=== PATIENT | male | born 1990 | race Caucasian/White ===

== ENCOUNTER 2017-12-26 00:54 | Emergency (ER) | payer BC ==
[2017-12-26 01:07] VITALS: O2SAT 100; BMI 25.1
[2017-12-26] MEDS ORDERED: Albuterol-Ipratrop 3 mg / 0.5 (3 ml) UD IH STA (01:19)
--- NOTE | 2017-12-26 01:22 | ED PDOC ---
Arrival/HPI - General Chief Complaint: Shortness Of Breath Time Seen by Provider: 12/26/17 01:07 Historian: Patient - History of Present Illness Narrative History of Present Illness (Text): 12/26/17 01:20 27 year old male, with no significant past medical history, presents to the emergency department with shortness of breath. Patient states he was sleeping at a friend's house when he became short of breath. Patient denies any associated chest pain, stating that he feels he can't take a deep breath. Patient denies any fever, chills, headache, dizziness, chest pain, cough, abdominal pain, nausea, vomiting, diarrhea, back pain, neck pain, urinary/bowel changes, or any other complaint. Time/Duration: Prior to Arrival Symptom Onset: Gradual Symptom Course: Unchanged Past Medical History - Provider Review Nursing Documentation Reviewed: Yes - Infectious Disease Hx of Infectious Diseases: None - Psychiatric Hx Substance Use: No - Anesthesia Hx Anesthesia: No Family/Social History - Physician Review Nursing Documentation Reviewed: Yes Family/Social History: No Known Family HX Smoking Status: Never Smoked Hx Alcohol Use: No Hx Substance Use: No Allergies/Home Meds Allergies/Adverse Reactions: Allergies No Known Allergies Allergy (Verified 12/26/17 01:12) Home Medications: Home Meds Medication Instructions Recorded Confirmed No Known Home Med 12/26/17 12/26/17 Review of Systems - Physician Review All systems were reviewed & negative as marked: Yes - Review of Systems Constitutional: Normal. absent: Fevers, Night Sweats Eyes: Normal ENT: Normal Respiratory: SOB (feels unable to take a deep breath). absent: Cough Cardiovascular: Normal. absent: Chest Pain Gastrointestinal: Normal. absent: Abdominal Pain, Diarrhea, Nausea, Vomiting Genitourinary Male: Normal. absent: Urinary Output Changes Musculoskeletal: Normal. absent: Back Pain, Neck Pain Skin: Normal Neurological: Normal. absent: Headache, Dizziness Endocrine: Normal Hemo/Lymphatic: Normal Psychiatric: Normal Physical Exam Vital Signs Reviewed: Yes Vital Signs Temp Pulse Resp BP Pulse Ox 12/26/17 01:45 97.7 F 12/26/17 01:40 12 100 12/26/17 01:06 97.8 F 78 18 124/80 100 Temperature: Afebrile Blood Pressure: Normal Pulse: Regular Respiratory Rate: Normal Appearance: Positive for: Well-Appearing, Non-Toxic, Comfortable Pain Distress: None Mental Status: Positive for: Alert and Oriented X 3 - Systems Exam Head: Present: Atraumatic, Normocephalic Pupils: Present: PERRL Extroacular Muscles: Present: EOMI Conjunctiva: Present: Normal Mouth: Present: Moist Mucous Membranes Neck: Present: Normal Range of Motion Respiratory/Chest: Present: Clear to Auscultation, Good Air Exchange. No: Respiratory Distress, Accessory Muscle Use Cardiovascular: Present: Regular Rate and Rhythm, Normal S1, S2. No: Murmurs Abdomen: No: Tenderness, Distention, Peritoneal Signs Back: Present: Normal Inspection Upper Extremity: Present: Normal Inspection. No: Cyanosis, Edema Lower Extremity: Present: Normal Inspection. No: Edema Neurological: Present: GCS=15, CN II-XII Intact, Speech Normal Skin: Present: Warm, Dry, Normal Color. No: Rashes Psychiatric: Present: Alert, Oriented x 3, Normal Insight, Normal Concentration Medical Decision Making ED Course and Treatment: 12/26/17 01:23 Impression: 27 year old male presents with shortness of breath. Plan: -- Duoneb -- EKG -- Labs -- Chest X-ray -- Urinalysis -- Reassess and disposition Prior Visits: Notes and results from previous visits were reviewed. Progress Notes:pt improved without intervention suspect anxiety 12/26/17 03:35 - Lab Interpretations Lab Results: 12/26/17 01:55 12/26/17 01:55 Lab Results 12/26/17 01:55: Sodium 138, Potassium 3.6, Chloride 104, Carbon Dioxide 25, Anion Gap 13, BUN 12, Creatinine 0.9, Est GFR ( Amer) > 60, Est GFR (Non- Af Amer) > 60, Random Glucose 108, Calcium 9.5, Magnesium 1.9, Total Bilirubin 1.4 H, AST 22, ALT 29, Alkaline Phosphatase 71, Lactate Dehydrogenase 297 L, Total Creatine Kinase 91, Troponin I < 0.01, Total Protein 7.4, Albumin 4.6, Globulin 2.9, Albumin/Globulin Ratio 1.6 12/26/17 01:55: D-Dimer, Quantitative < 200 12/26/17 01:55: WBC 11.0, RBC 5.32, Hgb 14.2, Hct 41.8 L, MCV 78.6 L, MCH 26.7, MCHC 34.0, RDW 13.5, Plt Count 226, MPV 10.3, Gran % 64.0, Lymph % (Auto) 23.4, Hickman % (Auto) 8.6 H, Eos % (Auto) 3.7, Baso % (Auto) 0.3, Gran # 7.02 H, Lymph # (Auto) 2.6, Hickman # (Auto) 0.9 H, Eos # (Auto) 0.4, Baso # (Auto) 0.03 - RAD Interpretation Radiology Orders: 12/26/17 01:41 CHEST PORTABLE [RAD] Stat - Medication Orders Current Medication Orders: Discontinued Medications Albuterol/Ipratropium (Duoneb 3 Mg/0.5 Mg (3 Ml) Ud) 3 ml IH STAT STA Stop: 12/26/17 01:20 Last Admin: 12/26/17 01:29 Dose: 3 ml CATHLEEN Risk Score for UA/NSTEMI - CATHLEEN Risk Score Age > 64: NO 3 or more CAD Risk Factors: NO Known CAD (Stenosis greater than 50%): NO Aspirin use in past 7 days: NO Severe Angina: NO EKG ST changes greater than 0.5mm: NO Positive Cardiac Marker: NO CATHLEEN Score: 0 % risk at 14 days of: all cause mortality, new or recurrent NH, or severe recurrent ischemia requiring urgen revascularization: 5% - Scribe Statement The provider has reviewed the documentation as recorded by the Scribe Santana Duffy Provider Scribe Attestation: All medical record entries made by the Scribe were at my direction and personally dictated by me. I have reviewed the chart and agree that the record accurately reflects my personal performance of the history, physical exam, medical decision making, and the department course for this patient. I have also personally directed, reviewed, and agree with the discharge instructions and disposition. Disposition/Present on Arrival - Present on Arrival Any Indicators Present on Arrival: No History of DVT/PE: No History of Uncontrolled Diabetes: No Urinary Catheter: No History of Decub. Ulcer: No History Surgical Site Infection Following: None - Disposition Have Diagnosis and Disposition been Completed?: Yes Diagnosis: Dyspnea Disposition: HOME/ ROUTINE Disposition Time: 02:45 Patient Problems: Current Active Problems Problem Status Onset Dyspnea Acute Condition: GOOD Discharge Instructions (ExitCare): Shortness of Breath (Dyspnea) (DC) Forms: [employer] (Slovenian), WORK NOTE
[2017-12-26 02:10] LABS: ALB/GLOB RATIO 1.6 (1.1-1.8); ALBUMIN 4.6 g/dL (3.0-4.8); ALT/SGPT 29 U/L (7-56); AST/SGOT 22 U/L (17-59); BLOOD UREA NITROGEN 12 mg/dL (7-21); CALCIUM 9.5 mg/dL (8.4-10.5); GFR NON-AFRICAN AMERICAN > 60
[2017-12-26 02:11] LABS: BASO # 0.03 K/mm3 (0.0-2.0); BASO % 0.3 % (0.0-3.0); EOS # 0.4 (0.0-0.7); EOS % 3.7 % (1.5-5.0); GRAN # 7.02 (1.4-6.5); HEMOGLOBIN 14.2 g/dL (14.0-18.0); LYMPH # 2.6 (1.2-3.4); LYMPH % 23.4 % (22.0-35.0); MEAN CELL VOLUME 78.6 fl (80.0-105.0); MEAN CORPUSCULAR HEMOGLOBIN 26.7 pg (25.0-35.0); MEAN PLATELET VOLUME 10.3 fl (7.0-11.0); MONO # 0.9 (0.1-0.6); MONO % 8.6 % (1.0-6.0); RBC 5.32 10^6/uL (3.5-6.1); RED CELL DISTRIBUTION WIDTH 13.5 % (11.5-14.5)
[2017-12-26 02:27] LABS: TROPONIN I < 0.01 ng/mL
[2017-12-26 03:45] VITALS: BP 134/78; PULSE 72; RESP 18
[2017-12-26 03:51] VITALS: TEMP 97.8
--- NOTE | 2017-12-26 09:41 | CARD ---
APPROVED REPORT Date of service: 12/26/2017 EKG Measurement Heart [id number] <Conclusion> Normal sinus rhythm Possible Left atrial enlargement Borderline ECG
--- NOTE | 2017-12-26 10:35 | RAD ---
Date of service: 12/26/2017 HISTORY: sob COMPARISON: 05/21/2014 FINDINGS: LUNGS: No active pulmonary disease. PLEURA: No significant pleural effusion identified, no pneumothorax apparent. CARDIOVASCULAR: Normal. OSSEOUS STRUCTURES: No significant abnormalities. VISUALIZED UPPER ABDOMEN: Normal. OTHER FINDINGS: None. IMPRESSION: No active disease.
== END 2017-12-26 03:01 | disposition home or self-care (01) ==
LOC: ED 00:54
DX: R06.00 Dyspnea, unspecified (principal)